=== PATIENT | female | born 1975 | race Caucasian/White ===

== ENCOUNTER 2017-07-13 06:11 | Day surgery (SDC) | payer BC ==
[~2017-07-13 06:11] MED LIST: AMOXICILLIN500 MG PO; ATENOLOL25 MG PO; BENADRYL 50MG C50 MG PO; CIPRO500 MG OR; ELIMITE5 % EX; ELIMITE60 GM EX; ELIMITE60 GM TOP; IVERMECTIN3 MG PO; LORAZEPAM0.5 MG PO; MEDDOSEPAK PO; NYSTATIN100000 M4 TOP; PEPCID20 MG PO; PROZAC20 MG PO; PYRIDIUM200 MG PO; TRAMADOL HCL50 MG OR; TRIAMCINOLON0.5 % EX; ULTRAM50 MG PO; VISTARIL25 MG PO
[2017-07-13 06:56] LABS: BARBITURATES NEGATIVE (NEGATIVE); COCAINE NEGATIVE (NEGATIVE); METHADONE NEGATIVE (NEGATIVE); TETRAHYDROCANNABIONOL POSITIVE (NEGATIVE); TRICYLIC ANTIDEPRESSANTS NEGATIVE (NEGATIVE)
[2017-07-13 06:57] LABS: OXCYCODONE NEGATIVE (NEGATIVE)
[2017-07-13] MEDS ORDERED: MOTRIN800 MG PO (08:17)
[2017-07-13 09:22] VITALS: BP 116/61
== END 2017-07-13 08:45 | disposition home or self-care (01) | DRG 585 ==
LOC: ORM 06:11
PROVIDERS: ATTEND Surgery
PROC: 0HBU0ZZ Excision of Left Breast, Open Approach (ICD-10-PCS; principal; 2017-07-13)
DX: D24.2 Benign neoplasm of left breast (principal)

== ENCOUNTER 2018-10-31 17:35 | Emergency (ER) | payer BC ==
[~2018-10-31] VITALS: Ht 157.5 cm; Wt 65.0 kg
[~2018-10-31 17:35] MED LIST changes: +MOTRIN800 MG PO
[2018-10-31 17:59] LABS: HEMATOCRIT 36.5 % (37.0-47.0); HEMOGLOBIN 12.1 g/dl (12.0-16.0); IMMATURE GRANULOCYTES 0.2 % (0.0-5.0); MEAN CELL VOLUME 91.3 fL CALC (80.0-100.0); MEAN CORPUSCULAR HGB 30.3 pG CALC (26.0-32.0); MEAN CORPUSCULAR HGB CONC 33.2 g/L CALC (32.0-36.0); NEUT# 4.32 thou/uL (2.00-7.15); RED CELL DISTRI WIDTH 15.1 % (11.5-15.5)
[2018-10-31 18:04] LABS: URINE BLOOD DIPSTICK NEGATIVE (NEGATIVE); URINE COLOR YELLOW; URINE GLUCOSE - DIPSTICK NEGATIVE (NEGATIVE); URINE KETONE NEGATIVE (NEGATIVE); URINE LEUK ESTERASE NEGATIVE (NEGATIVE); URINE NITRITE - DIPSTICK NEGATIVE (Negative); URINE PH 5.5 (4.5-8.0); URINE PROTEIN - DIPSTICK 30 mg/dL (NEG-TRACE); URINE SPECIFIC GRAVITY >=1.030; URINE UROBILINOGEN - DIPSTICK 0.2 E.U./dL (0.2)
[2018-10-31 18:06] LABS: URINE BILIRUBIN - DIPSTICK NEGATIVE (NEGATIVE); URINE RBC 0-2 RBC/hpf (0-5); URINE SQUAMOUS EPITHELIAL CELL FEW EPI/hpf (0-FEW); URINE WBC 0-2 WBC/hpf (0-5)
[2018-10-31 18:07] LABS: BARBITURATES NEGATIVE (NEGATIVE); COCAINE NEGATIVE (NEGATIVE); METHADONE NEGATIVE (NEGATIVE); OXCYCODONE NEGATIVE (NEGATIVE); TETRAHYDROCANNABIONOL POSITIVE (NEGATIVE); TRICYLIC ANTIDEPRESSANTS NEGATIVE (NEGATIVE)
[2018-10-31 18:11] LABS: ALBUMIN 4.7 g/dL (3.2-5.0); ALKALINE PHOSPHATASE 61 u/l (38-126); ANION GAP 15 (6-22 (CALC)); BILIRUBIN, TOTAL 0.2 mg/dL (0.0-1.4); BUN 9 mg/dL (7-17); BUN/CREATININE RATIO 11 (12-20 (CALC)); CARBON DIOXIDE 21 mmol/l (22-30); CHLORIDE 107 mmol/l (95-108); CREATININE 0.9 mg/dL (0.5-1.0); GFR > 60 ML/MIN (>=60 (CALC)); GFR FOR AFR.AMER. > 60 ML/MIN (>=60 (CALC)); LIPASE 216 u/l (23-300); POTASSIUM 4.1 mmol/l (3.5-5.1); SGOT/AST 16 u/l (14-36); SODIUM 139 mmol/l (137-146); TOTAL PROTEIN 7.9 g/dL (6.3-8.2)
[2018-10-31 21:00] VITALS: BP 131/62
== END 2018-10-31 21:08 | disposition home or self-care (01) | DRG 313 ==
LOC: ED 17:35
DX: R07.89 Other chest pain (principal); F43.9 Reaction to severe stress, unspecified; R06.4 Hyperventilation; F17.200 Nicotine dependence, unspecified, uncomplicated

== ENCOUNTER 2022-08-07 04:24 | Emergency (ER) | payer BC ==
[~2022-08-07] VITALS: Ht 157.5 cm; Wt 54.0 kg
[2022-08-07] VITALS (9 sets, daily range): BP systolic 133–155; BP diastolic 86–94
[2022-08-07 05:55] LABS: BASO% 0.5 % (0-3); EOS% 2.3 % (0-8); HEMATOCRIT 42.3 % (37.0-47.0); HEMOGLOBIN 13.8 g/dl (12.0-16.0); IMMATURE GRANULOCYTES 0.3 % (0.0-5.0); LYMPH% 23.6 % (15-41); MEAN CORPUSCULAR HGB 32.1 pG CALC (26.0-32.0); MEAN CORPUSCULAR HGB CONC 32.6 g/dL CAL (32.0-36.0); MONO% 12.1 % (2-13); NEUT# 4.69 thou/uL (2.00-7.15); NEUT% 61.2 % (42-76); RED BLOOD COUNT 4.3 mill/uL (4.20-5.60); RED CELL DISTRI WIDTH 13.1 % (11.5-15.5)
[2022-08-07 05:56] LABS: MEAN CELL VOLUME 98.4 fL CALC (80.0-100.0)
[2022-08-07 06:01] LABS: ALBUMIN 4.7 g/dL (3.2-5.0); ALKALINE PHOSPHATASE 57 u/l (38-126); ANION GAP 14 (6-22 (CALC)); BUN 13 mg/dL (7-17); BUN/CREATININE RATIO 14 (12-20 (CALC)); CARBON DIOXIDE 24 mmol/l (22-30); CHLORIDE 105 mmol/l (95-108); CREATININE 0.9 mg/dL (0.5-1.0); ETHYL ALCOHOL 0 mg/dl (0-30); GFR FOR AFR.AMER. > 60 ML/MIN (>=60 (CALC)); GFR OTHER RACES > 60 ML/MIN (>=60 (CALC)); POTASSIUM 3.4 mmol/l (3.5-5.1); SODIUM 140 mmol/l (137-146); TOTAL PROTEIN 7.7 g/dL (6.3-8.2)
[2022-08-07 06:04] LABS: BILIRUBIN, TOTAL 0.4 mg/dL (0.02-1.3); SGOT/AST 29 u/l (14-36)
[2022-08-07 07:26] LABS: URINE BILIRUBIN - DIPSTICK NEGATIVE (NEGATIVE); URINE BLOOD DIPSTICK NEGATIVE (NEGATIVE); URINE COLOR YELLOW; URINE GLUCOSE - DIPSTICK NEGATIVE (NEGATIVE); URINE KETONE TRACE mg/dL (NEGATIVE); URINE LEUK ESTERASE NEGATIVE (Negative); URINE NITRITE - DIPSTICK NEGATIVE (Negative); URINE PH 7.5 (4.5-8.0); URINE PROTEIN - DIPSTICK NEGATIVE (NEG-TRACE); URINE UROBILINOGEN - DIPSTICK 0.2 E.U./dL (0.2)
[2022-08-07 07:29] LABS: URINE CLARITY HAZY
== END 2022-08-07 09:52 | disposition home or self-care (01) | DRG 605 ==
LOC: ED 04:24
PROVIDERS: Family Medicine
DX: S01.81XA Laceration without foreign body of other part of head, initial encounter (principal); S20.412A Abrasion of left back wall of thorax, initial encounter; S20.411A Abrasion of right back wall of thorax, initial encounter; S09.90XA Unspecified injury of head, initial encounter; Y04.2XXA Assault by strike against or bumped into by another person, initial encounter; F19.90 Other psychoactive substance use, unspecified, uncomplicated